=== PATIENT | male | born 1955 | race Caucasian/White ===

== ENCOUNTER 2018-10-16 07:11 | Day surgery (SDC) | payer OTHER ==
[~2018-10-16] VITALS: Ht 177.8 cm; Wt 91.1 kg
[~2018-10-16 07:11] MED LIST: BUPIVACAINE/PF-EPI 0.5% 1:200K ONE
[2018-10-16 07:47] VITALS: BP 111/72
[2018-10-16] MEDS ORDERED: LACTATED RINGERS 1,000 ML IV SCH ×2 (07:56→10:31)
[2018-10-16 07:58] VITALS: BP 111/72
[2018-10-16] MEDS ORDERED: LORazepam 2 MG/ML, 1ML IVPush ONE (08:00)
[2018-10-16] MEDS ORDERED: OXYcodone IR 5MG TABLET PO ONE (08:00)
[2018-10-16] MEDS ORDERED: GABAPENTIN 300 MG CAPSULE PO ONE (08:00)
[2018-10-16] MEDS ORDERED: METOCLOPRAMIDE 5 MG/ML, 2ML IVPush ONE (08:00)
[2018-10-16] MEDS ORDERED: HERBAL SUPPLEMENTS PO (08:04)
[2018-10-16] MEDS ORDERED: LORazepam 2 MG/ML, 1ML ONE (08:31)
[2018-10-16] MEDS ORDERED: METOCLOPRAMIDE 5 MG/ML, 2ML ONE (08:31)
[2018-10-16] MEDS ORDERED: DEXAMETHASONE 4 MG/ML, 1ML ONE (08:49)
[2018-10-16] MEDS ORDERED: ONDANSETRON 2MG/ML, 2ML ONE (08:49)
[2018-10-16] MEDS ORDERED: NEOSTIGMINE 1 MG/ML, 10ML ONE (08:49)
[2018-10-16] MEDS ORDERED: CEFAZOLIN 1,000 MG ONE (08:49)
[2018-10-16] MEDS ORDERED: ROCURONIUM 10 MG/ML,10ML ONE (08:49)
[2018-10-16] MEDS ORDERED: PROPOFOL 10 MG/ML, 20ML ONE (08:49)
[2018-10-16] MEDS ORDERED: GLYCOPYRROLATE 0.2MG/1ML, 5ML ONE (08:49)
[2018-10-16] MEDS ORDERED: MIDAZOLAM 1 MG/ML, 2ML ONE (09:08)
[2018-10-16] MEDS ORDERED: OXYcodone 5 MG/5 ML ORAL.SOL UDC ONE (10:32)
[2018-10-16] MEDS ORDERED: FENTANYL PF 100 MCG/2ML ONE (10:32)
[2018-10-16] MEDS ORDERED: MIDAZOLAM 1 MG/ML, 2ML IV PRN (11:00)
[2018-10-16] MEDS ORDERED: LABETALOL 5MG/ML, 20ML IV PRN (11:00)
[2018-10-16] MEDS ORDERED: ONDANSETRON 2MG/ML, 2ML IVPush PRN ×2 (11:00)
[2018-10-16] MEDS ORDERED: HYDROmorphone 1 MG/ML, 1ML IV PRN (11:00)
[2018-10-16] MEDS ORDERED: morphine SULFATE 10 MG/ML, 1ML IVPush PRN (11:00)
[2018-10-16] MEDS ORDERED: FENTANYL PF 100 MCG/2ML IV PRN (11:00)
[2018-10-16] MEDS ORDERED: OXYcodone 5 MG/5 ML ORAL.SOL UDC PO PRN (11:00)
[2018-10-16] MEDS ORDERED: MEPERIDINE/PF 25MG/0.5ML IVPush PRN (11:00)
[2018-10-16] MEDS ORDERED: OXYcodone/APAP 5/325MG TABLET ONE (15:59)
[2018-10-16] MEDS ORDERED: OXYcodone/APAP 7.5/325MG TABLET PO ONE (16:00)
== END 2018-10-16 16:37 | disposition home or self-care (01) ==
LOC: OUT 07:11
PROVIDERS: ATTEND Surgery
DX: K40.90 Unilateral inguinal hernia, without obstruction or gangrene, not specified as recurrent (principal); K42.9 Umbilical hernia without obstruction or gangrene; Z98.890 Other specified postprocedural states; Z88.0 Allergy status to penicillin
CPT/HCPCS: 49505; 49585; 93005; C1781; J0690; J1100; J2060; J2250; J2405; J2704; J2710; J2765; J3010; J3490; J7120